=== PATIENT | female | born 1980 | race Caucasian/White ===

== ENCOUNTER → 2019-04-27 | Outpatient (CLI) | payer OTHER ==
[2015-03-14 23:45] VITALS: BP 126/87
--- NOTE | 2019-04-27 15:09 | RAD ---
Examination: Ultrasound pelvis HISTORY: History of pelvic pain COMPARISON: None available Findings/ impression: The uterus is not identified likely prior surgical changes. The ovaries are difficult to visualize. There is a 1.2 x 0.6 x 0.9 cm hypoechogenicity in the right adnexa could be the right ovary. Left ovary could not be identified. Ultrasound of the left groin was also performed no obvious hernia visualized. Electronically signed by: Zeferino Arauz MD (04/27/2019 3:06 PM) [place] [id number]
== END | disposition home or self-care (01) ==
LOC: US 12:33 → EEVIPCON 13:00
PROVIDERS: ATTEND Registered Nurse
DX: R10.2 Pelvic and perineal pain (principal)
CPT/HCPCS: 76830; 76856